=== PATIENT | male | born 1965 ===

== ENCOUNTER 2017-08-17 18:06 | Inpatient (IN) ==
[2017-08-17 18:44] LABS: Hemoglobin 17.9 g/dL (12.9-16.9); Immature Granulocytes % 0.4 % (0-4)
[2017-08-17 18:46] LABS: Basophils # 0.1 K/mcL (0.0-0.2); Basophils % 0.6 %; Eosinophils # 0.3 K/mcL (0.0-0.6); Eosinophils % 3.7 %; Hematocrit 54.5 % (37.5-50.1); Immature Platelets 4.6 % (1.1-6.1); Lymphocytes # 1.4 K/mcL (0.6-4.6); Lymphocytes % 17.7 %; Mean Corpuscular HGB Conc 32.8 g/dL (31.6-35.5); Mean Corpuscular Hemoglobin 30.3 pg (28.0-33.3); Mean Corpuscular Volume 92.2 fL (83.0-100.0); Monocytes # 1.1 K/mcL (0.0-1.3); Monocytes % 13.4 %; Neutrophils # 5.1 K/mcL (1.6-8.9); Red Blood Count 5.91 M/mcL (4.19-5.50); Red Cell Distribution Width 22.5 % (11.5-14.5); Segmented Neutrophils % 64.2 %
[2017-08-17 19:05] LABS: Potassium 3.9 mEq/L (3.5-5.1)
[2017-08-17 19:06] LABS: Platelet Count 59 K/mcL (140-400)
[2017-08-17 19:15] LABS: Anisocytosis 1+ (Not Present); Platelet Estimate Decreased (Normal)
--- NOTE | 2017-08-17 19:33 | Emergency Department Note ---
Disposition Clinical Impression: Altered mental status Qualifiers: Altered mental status type: unspecified Qualified Code(s): R41.82 - Altered mental status, unspecified Disposition: Admitted As Inpatient Condition: Fair Time of Disposition: 19:46 General Adult HPI - General Chief complaint: ED Fall Stated complaint: FALL Time Seen by Provider: 08/17/17 18:11 Source: EMS Mode of arrival: EMS Limitations: altered mental status Nursing Notes Reviewed: Yes Vital Signs Reviewed: Yes - History of Present Illness HPI Narrative: Mr. Keyes is a 51 y/o male who presents via EMS from [facility] for unwitnessed fall. Pt has been at [facility] since 07/18, after admission to [facility] for cirrhosis/hepatic encephalopathy. PMH significant for esophageal varices, ascites, portal hypertension, meds list per chart review from [facility] includes Trevada, eplerenone, spironolactone, lactulose. Per [facility] staff, patient's at baseline has limited vocalization, frequently cries, can answer yes and no. Pt says yes to headache, unable to provide personal history beyond name and date of . Says no to abdominal pain, difficulty breathing, or chest pain. Onset (ago): hour(s) Pain Scale: 7 - Related Data Home Medications Medication Instructions Recorded Confirmed Emtricitabine/Tenofovir [Truvada 1 each PO DAILY 08/17/17 08/17/17 200 mg-300 mg Tablet] Eplerenone [Inspra] 75 mg PO BID 08/17/17 08/17/17 Lactulose 40 gm PO QID 08/17/17 08/17/17 Omeprazole [PriLOSEC] 40 mg PO BID 08/17/17 08/17/17 Polyethylene Glycol 3350 [Gavilax] 17 gm PO DAILY 08/17/17 08/17/17 Rifaximin [Xifaxan] 550 mg PO BID 08/17/17 08/17/17 Sertraline [Zoloft] 50 mg PO DAILY 08/17/17 08/17/17 Tiotropium [Spiriva] 18 mcg IH 0700 08/17/17 08/17/17 traZODone [TraZODone] 50 mg PO HS 08/17/17 08/17/17 Allergies Allergy/AdvReac Type Severity Reaction Status Date / Time acetaminophen [From Tylenol] Allergy Irritable Verified 08/17/17 18:37 adhesive tape Allergy Rash Verified 08/17/17 21:10 aspartame Allergy See Verified 08/17/17 21:10 Comments cephalexin [From Keflex] Allergy See Verified 08/17/17 21:10 Comments codeine Allergy See Verified 08/17/17 21:10 Comments hydrocodone Allergy See Verified 08/17/17 21:10 Comments latex Allergy Itching Verified 08/17/17 18:37 Penicillins Allergy Itching Verified 08/17/17 18:36 vancomycin Allergy See Verified 08/17/17 21:10 Comments Limitations: ROS unobtainable due to patients medical condition Past Medical History - Past Medical History Medical history: Reports: hepatitis Psychiatric history: Reports: other - Social History Smoking Status: Never smoker Smokeless Tobacco Status: No Alcohol use: Reports: none Drug use: Reports: none Physical Exam - General Limitations: altered mental status (occasional yes/no, does follow some commands ) General appearance: alert, in no apparent distress - Head Head exam: other (no holland sign, scalp without laceration) - ENT ENT exam: mucous membranes moist, other (no hemotympanum) - Neck Neck exam: Present: other (patient able to move neck without hesitation or facial grimace) - Chest Chest inspection: Present: symmetric chest wall rise - Respiratory Respiratory exam: Present: normal lung sounds bilaterally - Cardiovascular Cardiovascular exam: Present: normal rhythm (mid 90s heart-rate). Absent: systolic murmur, diastolic murmur, rubs, gallop - Abdominal Exam Abdominal exam: Present: soft. Absent: distention, guarding, rigidity, pulsatile mass - Extremities Exam Extremities exam: Present: other (Pt grimaces on PROM of LUE, no laceration or evidence of ecchymosis) Course Course Narrative: Patient presents via EMS with AMS. Answers mainly yes or no questions. Alert to self, does not know place or year. Exam shows no head lac or hemotympanum. ECG shows no ischemia changes. CT head, neck negative for acute bleed. XR L shoulder negative. Troponin negative. Ammonia 116, will start lactulose. UA negative. Discussed with hospitalist interest in admitting for evaluation of altered mental status, who agrees to admit patient. Vital Signs Temperature 98.4 F 08/17/17 18:08 Pulse Rate 99 08/17/17 18:08 Respiratory Rate 18 08/17/17 18:08 Blood Pressure 130/86 08/17/17 18:08 O2 Sat by Pulse Oximetry 95 08/17/17 18:08 Temperature 98.4 F 08/17/17 18:08 Pulse Rate 93 08/17/17 21:44 Respiratory Rate 18 08/17/17 18:08 Blood Pressure 128/79 08/17/17 21:44 O2 Sat by Pulse Oximetry 95 08/17/17 18:08 Oxygen Delivery Oxygen Delivery Room Air Medical Decision Making - Medical Records Medical records reviewed: Yes I reviewed the patient's medical records. - Lab Data Lab results reviewed: Yes I reviewed the patient's lab results. Result diagrams: 08/17/17 18:24 08/17/17 18:24 Lab Results 08/17/17 08/17/17 08/17/17 Range/Units 18:24 18:24 18:25 WBC 7.9 (4.3-11.1) K/mcL RBC 5.91 H (4.19-5.50) M/mcL Hgb 17.9 H (12.9-16.9) g/dL Hct 54.5 H (37.5-50.1) % MCV 92.2 (83.0-100.0) fL MCH 30.3 (28.0-33.3) pg MCHC 32.8 (31.6-35.5) g/dL RDW 22.5 H (11.5-14.5) % Plt Count 59 L (140-400) K/mcL MPV 11.0 (9.4-12.4) fL Immature Gran % 0.4 (0-4) % Seg Neutrophils % 64.2 % Lymphocytes % 17.7 % Monocytes % 13.4 % Eosinophils % 3.7 % Basophils % 0.6 % Neutrophils # 5.1 (1.6-8.9) K/mcL Lymphocytes # 1.4 (0.6-4.6) K/mcL Monocytes # 1.1 (0.0-1.3) K/mcL Eosinophils # 0.3 (0.0-0.6) K/mcL Basophils # 0.1 (0.0-0.2) K/mcL Platelet Estimate Decreased L (Normal) Immature Plt Fraction 4.6 (1.1-6.1) % Anisocytosis 1+ A (Not Present) Sodium 154 H (136-145) mEq/L Potassium 3.9 (3.5-5.1) mEq/L Chloride 118 H (98-107) mEq/L Carbon Dioxide 27 (23-29) mEq/L BUN 26 H (6-20) mg/dL Creatinine 1.73 H (0.70-1.30) mg/dL Est GFR ( Amer) 50 L (> 60) Est GFR (Non-Af Amer) 42 L (> 60) BUN/Creatinine Ratio 15 (6-26) Glucose 111 H (70-105) mg/dL Calculated Osmolality 323 H (280-300) Calcium 11.0 H (8.6-10.3) mg/dL Ammonia (16-53) mcmol/L Troponin I < 0.03 (< 0.04) ng/mL Urine Color (Yellow) Urine Clarity (Clear) Urine pH (5.0-8.0) pH Units Ur Specific [place] (1.010-1.025) Urine Protein (Neg-Trace) mg/dL Urine Glucose (UA) (Normal) mg/dL Urine Ketones (Negative) mg/dL Urine Blood (Negative) Urine Nitrite (Negative) Urine Bilirubin (Negative) Urine Urobilinogen (Normal) mg/dL Ur Leukocyte Esterase (Negative) Urine Microscopic RBC (0-3) per hpf Urine Microscopic WBC (0-3) per hpf Ur Squamous Epith Cells (None-Few) per lpf Urine Bacteria (None-Few) per hpf Hyaline Casts (None-Few) per lpf Ur Culture Indicated? (NO) 08/17/17 08/17/17 Range/Units 19:16 19:23 WBC (4.3-11.1) K/mcL RBC (4.19-5.50) M/mcL Hgb (12.9-16.9) g/dL Hct (37.5-50.1) % MCV (83.0-100.0) fL MCH (28.0-33.3) pg MCHC (31.6-35.5) g/dL RDW (11.5-14.5) % Plt Count (140-400) K/mcL MPV (9.4-12.4) fL Immature Gran % (0-4) % Seg Neutrophils % % Lymphocytes % % Monocytes % % Eosinophils % % Basophils % % Neutrophils # (1.6-8.9) K/mcL Lymphocytes # (0.6-4.6) K/mcL Monocytes # (0.0-1.3) K/mcL Eosinophils # (0.0-0.6) K/mcL Basophils # (0.0-0.2) K/mcL Platelet Estimate (Normal) Immature Plt Fraction (1.1-6.1) % Anisocytosis (Not Present) Sodium (136-145) mEq/L Potassium (3.5-5.1) mEq/L Chloride (98-107) mEq/L Carbon Dioxide (23-29) mEq/L BUN (6-20) mg/dL Creatinine (0.70-1.30) mg/dL Est GFR ( Amer) (> 60) Est GFR (Non-Af Amer) (> 60) BUN/Creatinine Ratio (6-26) Glucose (70-105) mg/dL Calculated Osmolality (280-300) Calcium (8.6-10.3) mg/dL Ammonia 116 H (16-53) mcmol/L Troponin I (< 0.04) ng/mL Urine Color Dark Yellow (Yellow) Urine Clarity Cloudy A (Clear) Urine pH 6.0 (5.0-8.0) pH Units Ur Specific [place] 1.026 H (1.010-1.025) Urine Protein Trace (Neg-Trace) mg/dL Urine Glucose (UA) Normal (Normal) mg/dL Urine Ketones Trace H (Negative) mg/dL Urine Blood Negative (Negative) Urine Nitrite Negative (Negative) Urine Bilirubin Small H (Negative) Urine Urobilinogen Normal (Normal) mg/dL Ur Leukocyte Esterase Small H (Negative) Urine Microscopic RBC 0-3 (0-3) per hpf Urine Microscopic WBC 5-15 H (0-3) per hpf Ur Squamous Epith Cells Many H (None-Few) per lpf Urine Bacteria None Seen (None-Few) per hpf Hyaline Casts Many H (None-Few) per lpf Ur Culture Indicated? NO. (NO) - EKG Data EKG #1 EKG attestation: Yes I reviewed and interpreted this EKG. EKG results narrative: ECG obtained 1835, 96 BPM, normal axis, low voltage, no st elevation or depression, normal r wave progression. Attestation Statement - Attestation Attestation: I, Dru Tong, examined this patient and my medical decision-making was reviewed with the ASSET MANAGER/PA/Advanced Practice Nurse/Resident Physician. I agree with the documented findings, disposition and treatment plan as described except to the extent set forth below. History source: Patient is unable to provide information for this note. Info was gathered from the patient, hospital staff, the patient's chart. History limitations: Patient condition Medications: As per nurses note 51-year-old male presents emergency Department from a snf facility after an unwitnessed fall. Patient has a history of hepatic encephalopathy with multiple falls in the past. Patient winces in pain to movement of the left upper shoulder. He does follow commands however he is unable to give a history regarding his case presentation. Resident spoke with the nursing staff who state he has become increasingly weak and fatigued over the past few days and complained of various pains. Patient's does not specify specific pain during the ED evaluation. CT of the head and neck was negative for acute fracture or intracranial hemorrhage. Patient had mild elevation of his creatinine however we do not have a previous. Patient has an elevated ammonia level for which she is supposed to take lactulose at the snf facility. Patient will be admitted to the hospitalist for altered mental status and further observation after the fall.
[2017-08-17 19:34] LABS: Bilirubin,Urine Small (Negative); Blood,Urine Negative (Negative); Clarity,Urine Cloudy (Clear); Color,Urine Dark Yellow (Yellow); Glucose,Urine (UA) Normal (Normal); Ketones,Urine Trace mg/dL (Negative); Leukocyte Esterase,Urine Small (Negative); Nitrite,Urine Negative (Negative); Protein,Urine Trace mg/dL (Neg-Trace); Specific Gravity,Urine 1.026 (1.010-1.025); Urobilinogen,Urine Normal (Normal)
[2017-08-17 19:37] LABS: Bacteria,Urine None Seen per hpf (None-Few); RBC,Urine 0-3 per hpf (0-3); Squamous Epithelial Cell,Urine Many per lpf (None-Few)
[2017-08-17 19:46] LABS: Hyaline Casts,Urine Many per lpf (None-Few)
[2017-08-17] MEDS ORDERED: Lactulose Oral Soln 20 GM/30 ML UDC PO ONE (20:07)
--- NOTE | 2017-08-17 22:22 | Internal Med History&Physical ---
Date of Encounter: 08/18/17 Time of Encounter: 22:20 Assessment and Plan (1) Hepatic encephalopathy Current visit: Yes Status: Acute schedule lactulose, titrate to 3 BM daily (2) Hypernatremia Current visit: Yes Status: Acute trend for now, gentle hypotonic IVF (3) Pyuria Current visit: Yes Status: Acute doubt UTI, nitrite negative monitor for now, urine cx pend (4) Hepatitis B Current visit: Yes Status: Acute Qualifiers: Viral hepatitis chronicity: chronic Qualified Code(s): B18.1 - Chronic viral hepatitis B without delta-agent (5) CKD (chronic kidney disease) Current visit: Yes Status: Acute trend Qualifiers: Chronic kidney disease stage: stage 3 (moderate) Qualified Code(s): N18.3 - Chronic kidney disease, stage 3 (moderate) (6) Failure to thrive Current visit: Yes Status: Acute 2/2 CLD above Qualifiers: Qualified Code(s): R62.7 - Adult failure to thrive Internal Medicine - H&P: HPI Chief complaint: Fall, FTT History of present illness: Mr. Sands is a 51 year old male with history of hepatitis B cirrhosis [facility]. Admitted for further observation. Patient was at [facility] recently for cirrhosis and hepatic encephalopathy. He was subsequently discharged to [facility] on July 18 where he had been there for a few weeks. He presents with worsening confusion, an unwitnessed fall today. Has been experiencing increasing failure to thrive, weakness, frailty and limited gait possibly due to acute exacerbation of his chronic liver disease with encephalopathy. EKG personally reviewed with rate of 96, normal sinus rhythm XR/XR shoulder complete LT IMPRESSION: Negative XR/XR chest 1V portable IMPRESSION: No active cardiopulmonary disease CT/CT head/brain wo con IMPRESSION: No acute intracranial hemorrhage. Mild generalized volume loss and scattered periventricular low attenuation. While this may be related to chronic small vessel disease, this is slightly more than expected given patient's age. Recommend further evaluation with MRI. CT/CT cervical spine wo con IMPRESSION: No acute abnormality of the cervical spine. Past Med Surg Social Fam HX - Past Medical History Medical history: hepatitis Psychiatric history: other - Past Surgical History Surgical History: other (unable to provide due to mental status) - Social History Smoking Status: Never smoker Smokeless Tobacco Status: No Alcohol use: none Drug use: none Internal Medicine - H&P: Meds Emtricitabine/Tenofovir [Truvada 200 mg-300 mg Tablet] 1 each PO DAILY 08/17/17 [History] Eplerenone [Inspra] 75 mg PO BID 08/17/17 [History] Lactulose 40 gm PO QID 08/17/17 [History] Omeprazole [PriLOSEC] 40 mg PO BID 08/17/17 [History] Polyethylene Glycol 3350 [Gavilax] 17 gm PO DAILY 08/17/17 [History] Rifaximin [Xifaxan] 550 mg PO BID 08/17/17 [History] Sertraline [Zoloft] 50 mg PO DAILY 08/17/17 [History] Tiotropium [Spiriva] 18 mcg IH 0700 08/17/17 [History] traZODone [TraZODone] 50 mg PO HS 08/17/17 [History] 3 Allergy/AdvReac Type Severity Reaction Status Date / Time acetaminophen [From Tylenol] Allergy Irritable Verified 08/17/17 18:37 adhesive tape Allergy Rash Verified 08/17/17 21:10 aspartame Allergy See Verified 08/17/17 21:10 Comments cephalexin [From Keflex] Allergy See Verified 08/17/17 21:10 Comments codeine Allergy See Verified 08/17/17 21:10 Comments hydrocodone Allergy See Verified 08/17/17 21:10 Comments latex Allergy Itching Verified 08/17/17 18:37 Penicillins Allergy Itching Verified 08/17/17 18:36 vancomycin Allergy See Verified 08/17/17 21:10 Comments All Systems PM: A 10-system review of systems was performed and is negative for pertinent findings except as documented above in the HPI. Review of systems: ROS 14 point review of systems reviewed as best as possible given presentation. Pertinent positive or negative as per HPI or otherwise reviewed as negative - Constitutional Vitals: Temp Pulse Resp BP Pulse Ox 98.4 F 93 18 128/79 95 08/17/17 18:08 08/17/17 21:44 08/17/17 18:08 08/17/17 21:44 08/17/17 18:08 Exam: General - Confused Psych -No agitation Eyes - ISIDRA. Eye lids intact. No scleral icterus Neuro - Moving all 4 extremities but appears confused Heart - Sinus. RRR. S1 and S2 present. No added HS/murmurs appreciated. No elevated JVD appreciated. Lung - Adequate air entry b/l, No crackles/wheezes appreciated GI - Soft, non-tender. No hepatosplenomegaly/ascites. BS+ - No CVA/suprapubic tenderness or palpable bladder distension Skin - Intact. No rash/petechiae/ecchymosis. Warm extremities Internal Med - H&P Results - Labs CBC & Chem 7: 08/18/17 03:57 08/17/17 18:24
[2017-08-17] MEDS ORDERED: Naloxone 0.4 MG/ML INJ IVP PRN (22:31)
[2017-08-17] MEDS ORDERED: D5% in 0.45% NACL 1,000 ML IVC SCH (22:45)
[2017-08-18 04:08] LABS: Hemoglobin 16.4 g/dL (12.9-16.9); Immature Granulocytes % 0.2 % (0-4)
[2017-08-18 04:10] LABS: Basophils # 0.1 K/mcL (0.0-0.2); Basophils % 0.8 %; Eosinophils # 0.3 K/mcL (0.0-0.6); Eosinophils % 4.1 %; Hematocrit 49.9 % (37.5-50.1); Immature Platelets 4.2 % (1.1-6.1); Lymphocytes # 1.3 K/mcL (0.6-4.6); Lymphocytes % 19.6 %; Mean Corpuscular HGB Conc 32.9 g/dL (31.6-35.5); Mean Corpuscular Hemoglobin 30.6 pg (28.0-33.3); Mean Corpuscular Volume 93.1 fL (83.0-100.0); Mean Platelet Volume 11.1 fL (9.4-12.4); Monocytes # 0.6 K/mcL (0.0-1.3); Monocytes % 9.8 %; Neutrophils # 4.3 K/mcL (1.6-8.9); Red Blood Count 5.36 M/mcL (4.19-5.50); Red Cell Distribution Width 22.6 % (11.5-14.5); Segmented Neutrophils % 65.5 %
[2017-08-18 04:11] LABS: Platelet Count 51 K/mcL (140-400)
[2017-08-18 04:28] LABS: Platelet Estimate Decreased (Normal)
[2017-08-18 04:31] LABS: Anisocytosis 1+ (Not Present)
[2017-08-18 04:33] LABS: Alanine Aminotransferase 63 Units/L (7-52); Albumin/Globulin Ratio 1.1 (1.1-2.2); Alkaline Phosphatase 195 Units/L (34-104); Aspartate Amino Transferase 65 Units/L (13-39); BUN/Creatinine Ratio 19 (6-26); Bilirubin,Total 4.6 mg/dL (0.3-1.0); Blood Urea Nitrogen 26 mg/dL (6-20); Calcium 10.4 mg/dL (8.6-10.3); Carbon Dioxide 27 mEq/L (23-29); Chloride 119 mEq/L (98-107); Globulin 2.7 g/dL (2.4-3.5); Glucose 147 mg/dL (70-105); Osmolality,Calculated 321 (280-300); Potassium 3.6 mEq/L (3.5-5.1); Sodium 152 mEq/L (136-145); Total Protein 5.7 g/dL (6.4-8.9); eGFR For African Americans > 60 (> 60); eGFR For Non-African Americans 54 (> 60)
[2017-08-18] MEDS: Tiotropium 18 MCG inhalation IH SCH (07:35)
[2017-08-18] MEDS: Lactulose Oral Soln 20 GM/30 ML UDC PO SCH ×4 (08:47→22:49)
[2017-08-18] MEDS ORDERED: EPLERENONE 75 MG PO SCH (09:00)
--- NOTE | 2017-08-18 09:07 | Internal Med Progress Note ---
Date of Encounter: 08/19/17 Time of Encounter: 08:30 - Assessment and plan (1) Hepatic encephalopathy Current Visit: Yes Status: Acute Assessment and plan: Patient was markedly elevated ammonia levels. He is due for his next dose of lactulose. I discussed with the nurse that if he does not cooperate with taking this dose, we will have no choice but to place an NG tube to allow for administration of his lactulose. Continue Rifaximin. He has a nonfocal neurological exam. CT of his head shows chronic small vessel disease but no acute process. He does not appear to have an infection. Do suspect his altered mental status is primarily due to hepatic encephalopathy. Likely also due to dehydration and hypernatremia. See below. (2) Hypernatremia Current Visit: Yes Status: Acute Assessment and plan: Suspect patient is dehydrated with a significant free water deficit. I did increase his D5 half-normal to 100 mL per hour. Will repeat a sodium this afternoon to assess effect. If continues to rise we will change IV fluids to D5W. (3) Hepatitis B Current Visit: Yes Status: Acute Assessment and plan: Chronic issue, unsure where he is at with treatment. Patient also with evidence of chronic liver failure. I do not see any clinical evidence to suggest significant amount of ascites. I do not believe he has SBP. If he does not prove quickly I will consider imaging of his abdomen. Qualifiers: Viral hepatitis chronicity: chronic Qualified Code(s): B18.0 - Chronic viral hepatitis B with delta-agent (4) CKD (chronic kidney disease) Current Visit: Yes Status: Acute Assessment and plan: [id number] on chronic kidney disease Stage 3. Suspect dehydration causing worsening renal function. His renal function has improved with IV fluids. We will continue IV fluid replacement and monitor. Avoid nephrotoxins. Qualifiers: Chronic kidney disease stage: stage 3 (moderate) Qualified Code(s): N18.3 - Chronic kidney disease, stage 3 (moderate) (5) Pyuria Current Visit: Yes Status: Acute Assessment and plan: I do not suspect an acute UTI, patient is dehydrated. We will monitor. Patient has no fevers. No leukocytosis. (6) Hypercalcemia Current Visit: Yes Status: Acute Assessment and plan: Improved level today. Likely higher than the lab value showing due to his low albumin. Continue with IV fluids and closely monitor. I suspect this is primarily due to dehydration and probable immobility. - Time Spent With Patient Greater than 35 minutes - Subjective Interval history: CC: Confusion HPI: Mr. Sands is a 51 year old male with history of hepatitis B cirrhosis who presents from residential for an unwitnessed fall. Admitted for further observation. Patient was at [facility] recently for cirrhosis and hepatic encephalopathy. He was subsequently discharged to [facility] on July 18 where he had been there for a few weeks. He presents with worsening confusion, an unwitnessed fall today. Has been experiencing increasing failure to thrive, weakness, frailty and limited gait possibly due to acute exacerbation of his chronic liver disease with encephalopathy. EKG personally reviewed with rate of 96, normal sinus rhythm 08/18/17: Patient remains confused and is a very limited historian. He is only to tell me his name. He lays in bed with a blank stare and very slow speech. Thus far he has only received 1 dose of lactulose since arriving in the emergency department. He is due for his next dose now. Overnight he has remained afebrile and hemodynamically stable, satting 93% on room air. White blood cell count remains normal. Sodium has improved from 154-152. His creatinine is also improved from 1.73-1.37 with IV fluids. His ammonia level has increased from 116 on admission to 173 presently. - Constitutional Vitals: Temp Pulse Resp BP Pulse Ox 98.0 F 95 14 125/62 93 08/18/17 06:55 08/18/17 06:55 08/18/17 06:55 08/18/17 06:55 08/18/17 06:55 - Head Head exam: Present: atraumatic, normocephalic - Eye Eye exam: Present: PERRL, scleral icterus, conjuntiva pink Pupils: Present: PERRL - Neck Neck exam general surgery: Present: supple, trachea midline. Absent: lymphadenopathy - Respiratory Respiratory exam: Present: CTAB. Absent: accessory muscle use, rales, rhonchi, wheezes - Cardiovascular Cardiovascular exam: Present: RRR, +S1, +S2. Absent: diastolic murmur, gallop, rubs, systolic murmur - GI/Abdominal GI/Abdominal exam: Present: normal bowel sounds, soft, no peritoneal signs. Absent: distended, tenderness - Extremities Exam Extremities exam: Present: warm, radial pulses palpable and symmetrical. Absent : calf tenderness, cyanotic, pedal edema - Neurological Exam Additional comments: No gross focal deficits. Blank stare. Response to voice. Limited interaction. Internal Medicine: Result - Labs CBC & Chem 7: 08/19/17 01:15 08/19/17 08:48 Labs: Short CBC 08/18/17 Range/Units 03:57 WBC 6.5 (4.3-11.1) K/mcL Hgb 16.4 D (12.9-16.9) g/dL Hct 49.9 (37.5-50.1) % Plt Count 51 L (140-400) K/mcL Neutrophils # 4.3 (1.6-8.9) K/mcL BMP 08/18/17 03:57 Sodium 152 H Potassium 3.6 Chloride 119 H Carbon Dioxide 27 BUN 26 H Creatinine 1.37 H Glucose 147 H Calcium 10.4 H Liver Function 08/18/17 Range/Units 03:57 Total Bilirubin 4.6 H (0.3-1.0) mg/dL AST 65 H (13-39) Units/L ALT 63 H (7-52) Units/L Alkaline Phosphatase 195 H (34-104) Units/L Albumin 3.0 L (3.5-5.7) g/dL - VTE Documentation of Mechanical Device: Intermittent pneumatic compression device Consult Discharge Plan - Plan Referrals: NONE,PCP [Primary Care Provider] -
[2017-08-18] MEDS ORDERED: D5% in 0.45% NACL 1,000 ML IVC SCH (09:09)
[2017-08-18 16:17] LABS: BUN/Creatinine Ratio 18 (6-26); Blood Urea Nitrogen 24 mg/dL (6-20); Calcium 9.9 mg/dL (8.6-10.3); Carbon Dioxide 27 mEq/L (23-29); Chloride 118 mEq/L (98-107); Glucose 112 mg/dL (70-105); Osmolality,Calculated 317 (280-300); Potassium 3.4 mEq/L (3.5-5.1); Sodium 151 mEq/L (136-145); eGFR For African Americans > 60 (> 60); eGFR For Non-African Americans 57 (> 60)
[2017-08-18] MEDS: D5% in Water 1,000 ML IVC SCH (18:28)
[2017-08-18] MEDS: traZODone 50 MG TABLET PO SCH (22:49)
[2017-08-19 01:32] LABS: Basophils # 0.1 K/mcL (0.0-0.2); Eosinophils # 0.2 K/mcL (0.0-0.6); Eosinophils % 4.2 %; Hemoglobin 14.7 g/dL (12.9-16.9); Immature Granulocytes % 0.2 % (0-4); Lymphocytes # 1.4 K/mcL (0.6-4.6); Lymphocytes % 26.8 %; Mean Corpuscular HGB Conc 32.7 g/dL (31.6-35.5); Mean Corpuscular Hemoglobin 30.5 pg (28.0-33.3); Mean Corpuscular Volume 93.4 fL (83.0-100.0); Mean Platelet Volume 11.5 fL (9.4-12.4); Monocytes # 0.7 K/mcL (0.0-1.3); Monocytes % 12.7 %; Neutrophils # 2.9 K/mcL (1.6-8.9); Platelet Count 48 K/mcL (140-400); Red Blood Count 4.82 M/mcL (4.19-5.50); Red Cell Distribution Width 22.3 % (11.5-14.5); Segmented Neutrophils % 55.1 %
[2017-08-19 01:50] LABS: Alanine Aminotransferase 79 Units/L (7-52); Albumin 2.8 g/dL (3.5-5.7); Albumin/Globulin Ratio 1.2 (1.1-2.2); Alkaline Phosphatase 205 Units/L (34-104); Aspartate Amino Transferase 116 Units/L (13-39); BUN/Creatinine Ratio 17 (6-26); Bilirubin,Total 3.3 mg/dL (0.3-1.0); Blood Urea Nitrogen 23 mg/dL (6-20); Calcium 9.9 mg/dL (8.6-10.3); Carbon Dioxide 25 mEq/L (23-29); Chloride 116 mEq/L (98-107); Globulin 2.3 g/dL (2.4-3.5); Glucose 147 mg/dL (70-105); Osmolality,Calculated 310 (280-300); Potassium 3.2 mEq/L (3.5-5.1); Sodium 147 mEq/L (136-145); Total Protein 5.1 g/dL (6.4-8.9); eGFR For African Americans > 60 (> 60); eGFR For Non-African Americans 56 (> 60)
[2017-08-19 02:03] LABS: Thyroid Stimulating Hormone 0.233 mcIU/mL (0.340-5.600)
[2017-08-19] MEDS: D5% in Water 1,000 ML IVC SCH ×2 (05:29→16:32)
[2017-08-19] MEDS: Tiotropium 18 MCG inhalation IH SCH (07:31)
[2017-08-19] MEDS: Lactulose Oral Soln 20 GM/30 ML UDC PO SCH ×4 (08:40→20:45)
--- NOTE | 2017-08-19 09:54 | Internal Med Progress Note ---
Date of Encounter: 08/19/17 Time of Encounter: 08:00 - Assessment and plan (1) Hepatic encephalopathy Current Visit: Yes Status: Acute Assessment and plan: Patient was markedly elevated ammonia levels. He is due for his next dose of lactulose. I discussed with the nurse that if he does not cooperate with taking this dose, we will have no choice but to place an NG tube to allow for administration of his lactulose. Continue Rifaximin. He has a nonfocal neurological exam. CT of his head shows chronic small vessel disease but no acute process. He does not appear to have an infection. Do suspect his altered mental status is primarily due to hepatic encephalopathy. Likely also due to dehydration and hypernatremia. See below. 08/19: Ammonia remains elevated. Continue with lactulose 4 times a day. Monitor. (2) Hypernatremia Current Visit: Yes Status: Acute Assessment and plan: Suspect patient is dehydrated with a significant free water deficit. I did increase his D5 half-normal to 100 mL per hour. Will repeat a sodium this afternoon to assess effect. If continues to rise we will change IV fluids to D5W. 08/19: Improving. Continue IV fluids as D5W. Aiming for gradual correction. Suspect patient has free water deficit. Monitor. (3) Hepatitis B Current Visit: Yes Status: Acute Assessment and plan: Chronic issue, unsure where he is at with treatment. Patient also with evidence of chronic liver failure. I do not see any clinical evidence to suggest significant amount of ascites. I do not believe he has SBP. If he does not prove quickly I will consider imaging of his abdomen. 08/19: CT abdomen and pelvis showed no acute process. No ascites. It did show chronic cirrhosis changes with portal hypertension. Also constipation for which he is receiving lactulose and is now had bowel movements. Qualifiers: Viral hepatitis chronicity: chronic Qualified Code(s): B18.0 - Chronic viral hepatitis B with delta-agent (4) CKD (chronic kidney disease) Current Visit: Yes Status: Acute Assessment and plan: CUAUHTEMOC on chronic kidney disease Stage 3. Suspect dehydration causing worsening renal function. His renal function has improved with IV fluids. We will continue IV fluid replacement and monitor. Avoid nephrotoxins. 08/19: Improving. Continue current treatment. Monitor Qualifiers: Chronic kidney disease stage: stage 3 (moderate) Qualified Code(s): N18.3 - Chronic kidney disease, stage 3 (moderate) (5) Pyuria Current Visit: Yes Status: Acute Assessment and plan: I do not suspect an acute UTI, patient is dehydrated. We will monitor. Patient has no fevers. No leukocytosis. (6) Hypercalcemia Current Visit: Yes Status: Acute Assessment and plan: Improved level today. Likely higher than the lab value showing due to his low albumin. Continue with IV fluids and closely monitor. I suspect this is primarily due to dehydration and probable immobility. 08/19: Improving. - Time Spent With Patient 25 - 35 minutes - Subjective Interval history: CC: Confusion HPI: Mr. Sands is a 51 year old male with history of hepatitis B cirrhosis who presents from [facility] for an unwitnessed fall. Admitted for further observation. Patient was at [facility] recently for cirrhosis and hepatic encephalopathy. He was subsequently discharged to [facility] on July 18 where he had been there for a few weeks. He presents with worsening confusion, an unwitnessed fall today. Has been experiencing increasing failure to thrive, weakness, frailty and limited gait possibly due to acute exacerbation of his chronic liver disease with encephalopathy. EKG personally reviewed with rate of 96, normal sinus rhythm 08/18/17: Patient remains confused and is a very limited historian. He is only to tell me his name. He lays in bed with a blank stare and very slow speech. Thus far he has only received 1 dose of lactulose since arriving in the emergency department. He is due for his next dose now. Overnight he has remained afebrile and hemodynamically stable, satting 93% on room air. White blood cell count remains normal. Sodium has improved from 154-152. His creatinine is also improved from 1.73-1.37 with IV fluids. His ammonia level has increased from 116 on admission to 173 presently. 08/19: Patient remains fairly somnolent. Apparently on review of old records this appears to be a chronic condition for him. She remains hemodynamically stable. He did have a bowel movement after taking lactulose. Ammonia level is still elevated but trending down, this morning is 153. Patient had a CT scan of his abdomen and pelvis without contrast yesterday which showed a large stool burden, a cirrhotic liver with stigmata of portal hypertension but no acute process. No Ascites. This morning patient continues to not voice any complaints although he is a very unreliable historian - Constitutional Vitals: Temp Pulse Resp BP Pulse Ox 98.1 F 89 16 108/69 95 08/19/17 06:42 08/19/17 06:42 08/19/17 07:31 08/19/17 06:42 08/19/17 07:31 General appearance: Present: A&O X 1, no acute distress - Head Head exam: Present: atraumatic, normocephalic - Eye Eye exam: Present: scleral icterus, conjuntiva pink - Neck Neck exam general surgery: Present: supple, trachea midline. Absent: lymphadenopathy - Respiratory Respiratory exam: Present: decreased breath sounds. Absent: accessory muscle use, rales, rhonchi, wheezes - Cardiovascular Cardiovascular exam: Present: RRR, +S1, +S2. Absent: diastolic murmur, gallop, rubs, systolic murmur - GI/Abdominal GI/Abdominal exam: Present: normal bowel sounds, soft, no peritoneal signs. Absent: distended, tenderness - Extremities Exam Extremities exam: Present: warm, radial pulses palpable and symmetrical. Absent : calf tenderness, cyanotic, pedal edema - Neurological Exam Neurological exam: Present: CN II-XII intact, no focal deficits. Absent: pronater drift, facial droop, speech deficit - Skin Skin exam: Present: dry, intact Internal Medicine: Result - Labs CBC & Chem 7: 08/19/17 01:15 08/19/17 08:48 Labs: Short CBC 08/19/17 Range/Units 01:15 WBC 5.2 (4.3-11.1) K/mcL Hgb 14.7 D (12.9-16.9) g/dL Hct 45.0 (37.5-50.1) % Plt Count 48 L (140-400) K/mcL Neutrophils # 2.9 (1.6-8.9) K/mcL BMP 08/18/17 08/18/17 08/19/17 15:47 17:27 01:15 Sodium 151 H 151 H 147 H Potassium 3.4 L Chloride 118 H Carbon Dioxide 27 BUN 24 H Creatinine 1.32 H Glucose 112 H Calcium 9.9 08/19/17 08/19/17 01:15 08:48 Sodium 147 H 148 H Potassium 3.2 L Chloride 116 H Carbon Dioxide 25 BUN 23 H Creatinine 1.34 H Glucose 147 H Calcium 9.9 Liver Function 08/19/17 Range/Units 01:15 Total Bilirubin 3.3 H (0.3-1.0) mg/dL AST 116 H (13-39) Units/L ALT 79 H (7-52) Units/L Alkaline Phosphatase 205 H (34-104) Units/L Albumin 2.8 L (3.5-5.7) g/dL - Impressions Impressions Abdomen/Pelvis CT 08/18/17 09:22 IMPRESSION: No evidence of acute inflammatory process in the abdomen or pelvis. Cirrhotic morphology of the liver and stigmata of portal hypertension, including splenomegaly and multiple portosystemic collaterals. Large colonic stool burden. Correlate with clinical evidence of constipation. D/ / 08/18/2017 13:27:21 Mike Houston MD / daisy Interpreting Provider: Mike Houston MD - VTE Documentation of Mechanical Device: Intermittent pneumatic compression device Consult Discharge Plan - Plan Referrals: NONE,PCP [Primary Care Provider] -
[2017-08-19] MEDS ORDERED: Potassium Chloride Elixir 20 MEQ/15 ML UDC PO ONE (12:31)
[2017-08-19 15:18] LABS: Magnesium 2.1 mg/dL (1.6-2.6)
[2017-08-19] MEDS: traZODone 50 MG TABLET PO SCH (20:45)
[2017-08-20] MEDS: D5% in Water 1,000 ML IVC SCH (02:52)
[2017-08-20] MEDS: Tiotropium 18 MCG inhalation IH SCH (07:53)
--- NOTE | 2017-08-20 08:13 | Internal Med Progress Note ---
<Parish Cisneros - Last Filed: 08/20/17 13:07> Date of Encounter: 08/20/17 Time of Encounter: 08:11 - Assessment and plan (1) Hepatic encephalopathy Current Visit: Yes Status: Acute Assessment and plan: -Patient was markedly elevated ammonia levels -Continue Rifaximin -CT of his head shows chronic small vessel disease but no acute process -AMS likely due to hepatic encephalopathy -Lactulose 40 g by mouth 4 times a day -Xifaxan 400 mg by mouth 3 times a day (2) CKD (chronic kidney disease) Current Visit: Yes Status: Acute Assessment and plan: -CUAUHTEMOC on chronic kidney disease Stage 3 -Suspect dehydration causing worsening renal function -His renal function has improved with IV fluids -Continue IV fluid replacement and monitor -Avoid nephrotoxins Qualifiers: Chronic kidney disease stage: stage 3 (moderate) Qualified Code(s): N18.3 - Chronic kidney disease, stage 3 (moderate) (3) Hypernatremia Current Visit: Yes Status: Acute Assessment and plan: -D5 at 100 mL per hour (4) Hepatitis B Current Visit: Yes Status: Acute Assessment and plan: -Chronic; patient has clinical evidence of chronic liver failure -CT abdomen and pelvis demonstrated chronic cirrhosis changes with portal hypertension Qualifiers: Viral hepatitis chronicity: chronic (5) Pyuria Current Visit: Yes Status: Acute Assessment and plan: -I do not suspect an acute UTI, patient is dehydrated -We will monitor -Patient has no fevers -No leukocytosis (6) Hypercalcemia Current Visit: Yes Status: Acute Assessment and plan: -Continue IV fluids - Subjective Interval history: 51-year-old male. Presented from [facility] for unwitnessed fall. Has been at [facility] since 07/18 after admission to [facility] for cirrhosis/ hepatic encephalopathy. Patients condition at baseline has limited vocalization, frequently cries, can answer yes and no. He stated that he had a headache. Unable to provide personal history beyond name and date of . Ammonia was 116 on admission, lactulose was started. He appeared to have pain with movement of the upper left shoulder. The nursing staff to [facility] claims that patient became increasingly weak and fatigued over the last several days. Complained of various pains. No history of hepatitis B cirrhosis. Currently being treated with lactulose 40 g by mouth 4 times a day and Xifaxan 400 mg by mouth 3 times a day. Monitoring patient for hypernatremia and hypercalcemia. Patient seen and examined at bedside this morning. Patient is nonverbal; review of systems is unobtainable. Patient does not appear to be in any distress at this time. Currently laying on side; makes occasional noises. Does not nod head or shaking head to answer question. - Constitutional Vitals: Temp Pulse Resp BP Pulse Ox 97.5 F L 84 15 108/56 97 08/20/17 06:41 08/20/17 06:41 08/20/17 07:54 08/20/17 06:41 08/20/17 07:54 General appearance: Present: A&O X 0, no acute distress - Head Head exam: Present: atraumatic, normocephalic - Eye Eye exam: Present: PERRL, conjuntiva pink, sclera anicteric Pupils: Present: PERRL - Neck Neck exam general surgery: Present: supple, trachea midline. Absent: lymphadenopathy - Respiratory Respiratory exam: Present: CTAB. Absent: accessory muscle use, rales, rhonchi, wheezes - Cardiovascular Cardiovascular exam: Present: RRR, +S1, +S2. Absent: diastolic murmur, gallop, rubs, systolic murmur - Skin Skin exam: Present: dry, intact Internal Medicine: Result - Labs CBC & Chem 7: 08/20/17 08:28 08/20/17 09:55 Labs: BMP 08/19/17 08/19/17 01:15 08:48 Sodium 147 H 148 H Potassium 3.2 L Chloride 116 H Carbon Dioxide 25 BUN 23 H Creatinine 1.34 H Glucose 147 H Calcium 9.9 Liver Function 08/19/17 Range/Units 01:15 Total Bilirubin 3.3 H (0.3-1.0) mg/dL AST 116 H (13-39) Units/L ALT 79 H (7-52) Units/L Alkaline Phosphatase 205 H (34-104) Units/L Albumin 2.8 L (3.5-5.7) g/dL - Impressions Impressions Abdomen/Pelvis CT 08/18/17 09:22 IMPRESSION: No evidence of acute inflammatory process in the abdomen or pelvis. Cirrhotic morphology of the liver and stigmata of portal hypertension, including splenomegaly and multiple portosystemic collaterals. Large colonic stool burden. Correlate with clinical evidence of constipation. D/ / 08/18/2017 13:27:21 Mike Houston MD / daisy Interpreting Provider: Mike Houston MD - VTE Documentation of Mechanical Device: Intermittent pneumatic compression device Consult Discharge Plan - Plan Referrals: NONE,PCP [Primary Care Provider] - <Yovani Rashid - Last Filed: 08/20/17 15:39> Date of Encounter: 08/20/17 - Assessment and plan (1) Hepatic encephalopathy Current Visit: Yes Status: Acute (2) Hypernatremia Current Visit: Yes Status: Acute (3) Hepatitis B Current Visit: Yes Status: Acute Qualifiers: Viral hepatitis chronicity: chronic (4) CKD (chronic kidney disease) Current Visit: Yes Status: Acute Qualifiers: Chronic kidney disease stage: stage 3 (moderate) Qualified Code(s): N18.3 - Chronic kidney disease, stage 3 (moderate) (5) Pyuria Current Visit: Yes Status: Acute (6) Hypercalcemia Current Visit: Yes Status: Acute - Constitutional Vitals: Temp Pulse Resp BP Pulse Ox 97.5 F L 84 15 108/56 97 08/20/17 06:41 08/20/17 06:41 08/20/17 07:54 08/20/17 06:41 08/20/17 07:54 Internal Medicine: Result - Labs CBC & Chem 7: 08/20/17 08:28 08/20/17 09:55 Labs: Short CBC 08/20/17 Range/Units 08:28 WBC 3.1 L (4.3-11.1) K/mcL Hgb 14.1 (12.9-16.9) g/dL Hct 42.3 (37.5-50.1) % Plt Count 42 L (140-400) K/mcL Neutrophils # 1.7 (1.6-8.9) K/mcL BMP 08/19/17 08/19/17 01:15 08:48 Sodium 147 H 148 H Potassium 3.2 L Chloride 116 H Carbon Dioxide 25 BUN 23 H Creatinine 1.34 H Glucose 147 H Calcium 9.9 Liver Function 08/19/17 Range/Units 01:15 Total Bilirubin 3.3 H (0.3-1.0) mg/dL AST 116 H (13-39) Units/L ALT 79 H (7-52) Units/L Alkaline Phosphatase 205 H (34-104) Units/L Albumin 2.8 L (3.5-5.7) g/dL - Impressions Impressions Abdomen/Pelvis CT 08/18/17 09:22 IMPRESSION: No evidence of acute inflammatory process in the abdomen or pelvis. Cirrhotic morphology of the liver and stigmata of portal hypertension, including splenomegaly and multiple portosystemic collaterals. Large colonic stool burden. Correlate with clinical evidence of constipation. D/ / 08/18/2017 13:27:21 Mike Houston MD / daisy Interpreting Provider: Mike Houston MD - Attending Attestation I performed an independent interview and exam of this patient. I agree with the findings, assessment, and plan of Dr. Cisneros, internal medicine undergraduate internship. Patient is much more alert today although still has very slowed mental status, which per my understanding in review of old records is more close to his baseline. His ammonia level is slowly improving. His hypernatremia is also improving and we are waiting his BMP today. We will need to continue to emphasize good oral intake. Suspect his hypernatremia was due to significant dehydration. Renal function continues to improve with IV fluids. Patient is not showing any signs of infection, and his CAT scan did not show any evidence of ascites. Continue with current management. Physical therapy, occupational therapy. All else as per Dr. Cisneros's note. Dx: moderate non severe protein calorie malnutrition
[2017-08-20 08:58] LABS: Eosinophils # 0.2 K/mcL (0.0-0.6); Eosinophils % 5.9 %; Hematocrit 42.3 % (37.5-50.1); Hemoglobin 14.1 g/dL (12.9-16.9); Immature Granulocytes % 0.7 % (0-4); Lymphocytes # 0.9 K/mcL (0.6-4.6); Lymphocytes % 29.3 %; Mean Corpuscular HGB Conc 33.3 g/dL (31.6-35.5); Mean Corpuscular Hemoglobin 31.2 pg (28.0-33.3); Mean Corpuscular Volume 93.6 fL (83.0-100.0); Mean Platelet Volume 11.9 fL (9.4-12.4); Monocytes # 0.3 K/mcL (0.0-1.3); Monocytes % 9.8 %; Nucleated Red Blood Cells 0.7 /100 WBC (0); Red Blood Count 4.52 M/mcL (4.19-5.50); Red Cell Distribution Width 21.7 % (11.5-14.5); Segmented Neutrophils % 53.3 %
[2017-08-20 09:29] LABS: Neutrophils # 1.7 K/mcL (1.6-8.9); Platelet Count 42 K/mcL (140-400)
[2017-08-20] MEDS: Lactulose Oral Soln 20 GM/30 ML UDC PO SCH ×4 (10:08→22:18)
[2017-08-20 10:57] LABS: BUN/Creatinine Ratio 17 (6-26); Blood Urea Nitrogen 17 mg/dL (6-20); Carbon Dioxide 27 mEq/L (23-29); Chloride 107 mEq/L (98-107); Glucose 176 mg/dL (70-105); Osmolality,Calculated 290 (280-300); Potassium 3.4 mEq/L (3.5-5.1); Sodium 137 mEq/L (136-145); eGFR For African Americans > 60 (> 60); eGFR For Non-African Americans > 60 (> 60)
[2017-08-20] MEDS ORDERED: traMADol 50 MG TABLET PO PRN (14:50)
[2017-08-20] MEDS: traZODone 50 MG TABLET PO SCH (22:17)
[2017-08-21 05:50] LABS: Eosinophils # 0.1 K/mcL (0.0-0.6); Eosinophils % 3.3 %; Hematocrit 39.5 % (37.5-50.1); Hemoglobin 13.2 g/dL (12.9-16.9); Immature Granulocytes % 0.7 % (0-4); Immature Platelets 5.1 % (1.1-6.1); Lymphocytes # 0.8 K/mcL (0.6-4.6); Lymphocytes % 25.9 %; Mean Corpuscular HGB Conc 33.4 g/dL (31.6-35.5); Mean Corpuscular Hemoglobin 31.1 pg (28.0-33.3); Mean Corpuscular Volume 93.2 fL (83.0-100.0); Mean Platelet Volume 11.6 fL (9.4-12.4); Monocytes # 0.3 K/mcL (0.0-1.3); Monocytes % 10.5 %; Neutrophils # 1.8 K/mcL (1.6-8.9); Red Blood Count 4.24 M/mcL (4.19-5.50); Red Cell Distribution Width 21.4 % (11.5-14.5); Segmented Neutrophils % 58.6 %
[2017-08-21 05:55] LABS: Platelet Count 38 K/mcL (140-400)
[2017-08-21 06:05] LABS: BUN/Creatinine Ratio 17 (6-26); Blood Urea Nitrogen 17 mg/dL (6-20); Calcium 9.2 mg/dL (8.6-10.3); Carbon Dioxide 27 mEq/L (23-29); Chloride 108 mEq/L (98-107); Glucose 126 mg/dL (70-105); Osmolality,Calculated 293 (280-300); Potassium 3.6 mEq/L (3.5-5.1); Sodium 140 mEq/L (136-145); eGFR For African Americans > 60 (> 60); eGFR For Non-African Americans > 60 (> 60)
--- NOTE | 2017-08-21 06:43 | Electrocardiograph Report ---
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
--- NOTE | 2017-08-21 07:24 | Internal Med Progress Note ---
Date of Encounter: 08/21/17 Time of Encounter: 07:23 - Assessment and plan (1) Hepatic encephalopathy Current Visit: Yes Status: Acute Assessment and plan: -Patient had markedly elevated ammonia levels; improving -Continue Rifaximin -CT of his head shows chronic small vessel disease but no acute process -AMS likely due to hepatic encephalopathy -Lactulose 40 g by mouth 4 times a day -Xifaxan 400 mg by mouth 3 times a day (2) CKD (chronic kidney disease) Current Visit: Yes Status: Acute Assessment and plan: -CUAUHTEMOC on chronic kidney disease Stage 3 -Suspect dehydration causing worsening renal function -His renal function has improved with IV fluids -Continue IV fluid replacement and monitor -Avoid nephrotoxins Qualifiers: Chronic kidney disease stage: stage 3 (moderate) Qualified Code(s): N18.3 - Chronic kidney disease, stage 3 (moderate) (3) Hepatitis B Current Visit: Yes Status: Acute Assessment and plan: Chronic; patient has clinical evidence of chronic liver failure CT abdomen and pelvis demonstrated the following: -Cirrhotic morphology of the liver and stigmata of portal HTN, including splenomegaly and multiple portosystemic collaterals. -Large colonic stool burden; Correlate with clinical evidence of constipation. Qualifiers: Viral hepatitis chronicity: chronic - Subjective Interval history: Patient seen and examined at bedside this morning. Patient is nonverbal; review of systems is unobtainable. Patient does not appear to be in any distress at this time. Maintains eye contact, but does not answer questions. - Constitutional Vitals: Temp Pulse Resp BP Pulse Ox 97.5 F L 95 15 103/62 92 08/21/17 06:32 08/21/17 06:32 08/21/17 06:32 08/21/17 06:32 08/21/17 06:32 General appearance: Present: A&O X 0, no acute distress - Head Head exam: Present: atraumatic, normocephalic - Eye Eye exam: Present: PERRL, conjuntiva pink, sclera anicteric Pupils: Present: PERRL - Neck Neck exam general surgery: Present: supple, trachea midline. Absent: lymphadenopathy - Respiratory Respiratory exam: Present: CTAB. Absent: accessory muscle use, rales, rhonchi, wheezes - Cardiovascular Cardiovascular exam: Present: RRR, +S1, +S2. Absent: diastolic murmur, gallop, rubs, systolic murmur - Extremities Exam Extremities exam: Present: warm, radial pulses palpable and symmetrical. Absent : calf tenderness, cyanotic, pedal edema - Neurological Exam Neurological exam: Present: speech deficit - Skin Skin exam: Present: dry, intact Internal Medicine: Result - Labs CBC & Chem 7: 08/21/17 04:50 08/21/17 04:50 Labs: Short CBC 08/20/17 08/21/17 Range/Units 08:28 04:50 WBC 3.1 L 3.1 L (4.3-11.1) K/mcL Hgb 14.1 13.2 (12.9-16.9) g/dL Hct 42.3 39.5 (37.5-50.1) % Plt Count 42 L 38 L (140-400) K/mcL Neutrophils # 1.7 1.8 (1.6-8.9) K/mcL BMP 08/20/17 08/21/17 09:55 04:50 Sodium 137 140 Potassium 3.4 L 3.6 Chloride 107 108 H Carbon Dioxide 27 27 BUN 17 17 Creatinine 0.98 0.98 Glucose 176 H 126 H Calcium 9.0 9.2 - VTE Documentation of Mechanical Device: Intermittent pneumatic compression device Consult Discharge Plan - Plan Referrals: NONE,PCP [Primary Care Provider] -
[2017-08-21] MEDS: Tiotropium 18 MCG inhalation IH SCH (07:53)
[2017-08-21] MEDS: Lactulose Oral Soln 20 GM/30 ML UDC PO SCH ×2 (09:04→12:43)
--- NOTE | 2017-08-21 10:46 | Discharge Summary ---
<Parish Cisneros - Last Filed: 08/21/17 10:42> Date of Encounter: 08/21/17 Time of Encounter: 10:42 - Discharge Diagnosis (1) Hepatic encephalopathy Priority: Primary Status: Acute (2) CKD (chronic kidney disease) Priority: Secondary Status: Acute Qualifiers: Chronic kidney disease stage: stage 3 (moderate) Qualified Code(s): N18.3 - Chronic kidney disease, stage 3 (moderate) (3) Hepatitis B Priority: Secondary Status: Acute Qualifiers: Viral hepatitis chronicity: chronic Qualified Code(s): B18.0 - Chronic viral hepatitis B with delta-agent Hospital course: Mr. Sands is a 51-year-old male who presented to [facility] from [facility] for unwitnessed fall. Patient has been at [facility] since 07/18 after admission to [facility] for cirrhosis/hepatic encephalopathy. Patients condition at baseline has limited vocalization, frequently cries, can answer yes and no. He stated that he had a headache. Unable to provide personal history beyond name and date of . Ammonia was 116 on admission, lactulose was started. He appeared to have pain with movement of the upper left shoulder. The nursing staff to [facility] claims that patient became increasingly weak and fatigued over the last several days. Complained of various pains. Was treated with lactulose 40 g by mouth 4 times a day and Xifaxan 400 mg by mouth 3 times a day. During his stay, he complained of some abdominal pain. He was treated with tramadol. CT scan showed no evidence of ascites. After starting lactulose , patient had approximately 3 bowel movements per day. Ammonia level began to improve and hypernatremia resolved. Patient seen and examined at bedside this morning. Patient is nonverbal; review of systems is unobtainable. Patient does not appear to be in any distress at this time. Currently laying on side; makes occasional noises. Does not nod head or shaking head to answer question. Patient will be transferred back to [facility]. Will be sent on lactulose 20 mg PO QID. - Time Spent with Patient Total time spent providing and/or coordinating discharge services: Greater than 30 minutes (42 minutes) - Discharge Medications Prescriptions: Lactulose 20 gm PO QID #120 [facility] Home Medications: Emtricitabine/Tenofovir [Truvada 200 mg-300 mg Tablet] 1 each PO DAILY 08/17/17 [History] Eplerenone [Inspra] 75 mg PO BID 08/17/17 [History] Lactulose 40 gm PO QID 08/17/17 [History] Omeprazole [PriLOSEC] 40 mg PO BID 08/17/17 [History] Polyethylene Glycol 3350 [Gavilax] 17 gm PO DAILY 08/17/17 [History] Rifaximin [Xifaxan] 550 mg PO BID 08/17/17 [History] Sertraline [Zoloft] 50 mg PO DAILY 08/17/17 [History] Tiotropium [Spiriva] 18 mcg IH 0700 08/17/17 [History] traZODone [TraZODone] 50 mg PO HS 08/17/17 [History] Lactulose 20 gm PO QID #120 [facility] 08/21/17 [Rx] Allergies/Adverse Reactions: 3 Allergy/AdvReac Type Severity Reaction Status Date / Time acetaminophen [From Tylenol] Allergy Irritable Verified 08/17/17 18:37 adhesive tape Allergy Rash Verified 08/17/17 21:10 aspartame Allergy See Verified 08/17/17 21:10 Comments cephalexin [From Keflex] Allergy See Verified 08/17/17 21:10 Comments codeine Allergy See Verified 08/17/17 21:10 Comments hydrocodone Allergy See Verified 08/17/17 21:10 Comments latex Allergy Itching Verified 08/17/17 18:37 Penicillins Allergy Itching Verified 08/17/17 18:36 vancomycin Allergy See Verified 08/17/17 21:10 Comments Date of admission: 08/17/17 22:31 Primary care physician: PCP NONE Consults: 08/20/17 09:52 Consult to Dancer [facility] Choreographer [CONS] Routine Reason for SW Consult: From [facility] 08/20/17 13:10 Consult to Physical Therapy [CONS] Routine Comment: Evaluate, develop and implement POC Reason for Consult: Patient nonverbal; altered mental status after experiencing a fall in the setting of hepatic encephalopathy. Patient has limited vocalization at baseline; assess patient's recovery Does patient have active BEDREST order?: Yes Is patient medically & hemodynamically stable?: Yes Discharging clinician: Parish Cisneros Anticipated date of discharge: 08/21/17 - Constitutional Vitals: Temp Pulse Resp BP Pulse Ox 97.5 F L 95 16 103/62 93 08/21/17 06:32 08/21/17 06:32 08/21/17 07:59 08/21/17 06:32 08/21/17 07:59 General appearance: Present: A&O X 0, no acute distress - Head Head exam: Present: atraumatic, normocephalic - Eye Eye exam: Present: PERRL, conjuntiva pink, sclera anicteric Pupils: Present: PERRL - Neck Neck exam general surgery: Present: supple, trachea midline. Absent: lymphadenopathy - Respiratory Respiratory exam: Present: CTAB. Absent: accessory muscle use, rales, rhonchi, wheezes - Cardiovascular Cardiovascular exam: Present: RRR, +S1, +S2. Absent: diastolic murmur, gallop, rubs, systolic murmur - Extremities Exam Extremities exam: Present: warm, radial pulses palpable and symmetrical. Absent : calf tenderness, cyanotic, pedal edema - Neurological Exam Neurological exam: Present: speech deficit - Skin Skin exam: Present: dry, intact - Patient Status Disposition: Transfer SNF Condition: Fair Overall status at discharge: patient is progressing back to baseline - Discharge Instructions Follow Up With: NONE,PCP [Primary Care Provider] - - Diet and Activity Activity: increase activity as tolerated Diet: advance to your usual diet - VTE Documentation of Mechanical Device: Intermittent pneumatic compression device <Cleveland Johnson - Last Filed: 08/21/17 15:41> Date of Encounter: 08/21/17 Hospital course: Mr. Sands is a 51 year old male - Time Spent with Patient Total time spent providing and/or coordinating discharge services: Date of admission: 08/17/17 22:31 Primary care physician: PCP NONE Consults: 08/20/17 09:52 Consult to Dancer [facility] Choreographer [CONS] Routine Reason for SW Consult: From [facility] 08/20/17 13:10 Consult to Physical Therapy [CONS] Routine Comment: Evaluate, develop and implement POC Reason for Consult: Patient nonverbal; altered mental status after experiencing a fall in the setting of hepatic encephalopathy. Patient has limited vocalization at baseline; assess patient's recovery Does patient have active BEDREST order?: Yes Is patient medically & hemodynamically stable?: Yes - Constitutional Vitals: Temp Pulse Resp BP Pulse Ox 97.9 F 92 15 107/64 93 08/21/17 15:37 08/21/17 15:37 08/21/17 15:37 08/21/17 15:37 08/21/17 15:37 - Attending Attestation acute hepatic encephalopathy severe constipation depression Continue lactulose 20 g QID, hold is more than 3 bowel movements time spent : 40 min I examined this patient and my medical decision-making was reviewed with the Resident Physician. I agree with the documented findings, disposition and treatment plan as described except to the extent set forth below.
--- NOTE | 2017-08-21 10:51 | Physician Discharge Referral ---
<Parish Cisneros - Last Filed: 08/21/17 10:49> [facility] Referral Info Institutional Level of Care: Skilled - Diagnosis (1) Hepatic encephalopathy Priority: Primary Status: Acute (2) CKD (chronic kidney disease) Priority: Secondary Status: Acute (3) Hepatitis B Priority: Secondary Status: Acute - Transfer Medications Prescriptions: Lactulose 20 gm PO QID #120 [facility] Home Medications: Emtricitabine/Tenofovir [Truvada 200 mg-300 mg Tablet] 1 each PO DAILY 08/17/17 [History] Eplerenone [Inspra] 75 mg PO BID 08/17/17 [History] Lactulose 40 gm PO QID 08/17/17 [History] Omeprazole [PriLOSEC] 40 mg PO BID 08/17/17 [History] Polyethylene Glycol 3350 [Gavilax] 17 gm PO DAILY 08/17/17 [History] Rifaximin [Xifaxan] 550 mg PO BID 08/17/17 [History] Sertraline [Zoloft] 50 mg PO DAILY 08/17/17 [History] Tiotropium [Spiriva] 18 mcg IH 0700 08/17/17 [History] traZODone [TraZODone] 50 mg PO HS 08/17/17 [History] Lactulose 20 gm PO QID #120 [facility] 08/21/17 [Rx] Allergies/Adverse Reactions: 3 Allergy/AdvReac Type Severity Reaction Status Date / Time acetaminophen [From Tylenol] Allergy Irritable Verified 08/17/17 18:37 adhesive tape Allergy Rash Verified 08/17/17 21:10 aspartame Allergy See Verified 08/17/17 21:10 Comments cephalexin [From Keflex] Allergy See Verified 08/17/17 21:10 Comments codeine Allergy See Verified 08/17/17 21:10 Comments hydrocodone Allergy See Verified 08/17/17 21:10 Comments latex Allergy Itching Verified 08/17/17 18:37 Penicillins Allergy Itching Verified 08/17/17 18:36 vancomycin Allergy See Verified 08/17/17 21:10 Comments - Respiratory Orders Smoking Cessation: Smoking cessation has been advised. For more information, call the [place] Tobacco Quit Line at 4-596-JBXX-NOW. CERTIFICATION: I certify that the transfer of the above named patient to an Extended Care Facility is necessary for the continuing treatment of the diagnosis listed. The above information is true and accurate reflection of patient's current condition. Confidential - Redisclosure prohibited without a patient's written consent. <Cleveland Johnson H - Last Filed: 08/21/17 15:42> - Respiratory Orders Smoking Cessation: Smoking cessation has been advised. For more information, call the [place] Tobacco Quit Line at 0-837-EVUN-NOW. - Advance Directives Code Status: Full Code - Diet Orders No Added Salt (LINDA) House Supplement per Dietary: Continue lactulose 20 g QID, hold is more than 3 bowel movements time spent : 40 min I examined this patient and my medical decision-making was reviewed with the Resident Physician. I agree with the documented findings, disposition and treatment plan as described except to the extent set forth below. CERTIFICATION: I certify that the transfer of the above named patient to an Extended Care Facility is necessary for the continuing treatment of the diagnosis listed. The above information is true and accurate reflection of patient's current condition. Confidential - Redisclosure prohibited without a patient's written consent.
[2017-08-21 15:39] VITALS: BP 107/64
[2017-08-21] MEDS ORDERED: FLUARIX QUAD 2017-18 36MOS UP/PF 0.5 ML SYRINGE IM ONE (19:49)
== END 2017-08-21 20:32 | DRG 441 ==
LOC: EMEROO 18:06 → 2NENU 18:06
PROVIDERS: ADMIT Internal Medicine Hematology & Oncology; ATTEND Internal Medicine